=== PATIENT | male | born 1965 | race Caucasian/White ===

== ENCOUNTER 2020-12-26 04:13 | Day surgery (SDC) | payer OTHER ==
[2020-12-26 07:17] VITALS: BMI 34.0
[2020-12-26] MEDS ORDERED: MIDAZOLAM HCL 2 MG/2 ML SINGLE DOSE VIAL ONE (10:10)
[2020-12-26 12:51] VITALS: PULSE 104
[2020-12-26 12:54] VITALS: BP 105/69; TEMP 97.3
== END 2020-12-26 12:52 | disposition home or self-care (01) ==
LOC: JASU-SURG 04:13
PROVIDERS: ATTEND Urology
PROC: 0TF4XZZ Fragmentation in Left Kidney Pelvis, External Approach (ICD-10-PCS; principal; 2020-12-26 09:30)
DX: N20.0 Calculus of kidney (principal)

== ENCOUNTER 2021-08-21 04:54 | Day surgery (SDC) | payer OTHER ==
[2021-08-17 17:36] VITALS: BMI 32.3
[2021-08-21] MEDS ORDERED: PROPOFOL 20 ML ONE (14:42)
[2021-08-21] MEDS ORDERED: MIDAZOLAM HCL 2 MG/2 ML SINGLE DOSE VIAL ONE (14:43)
[2021-08-21] MEDS ORDERED: LIDOCAINE HCL/PF 2% SDV 5ML VIAL ONE (14:44)
[2021-08-21] MEDS ORDERED: GLYCOPYRROLATE 0.2 MG/1 ML VIAL ONE (14:44)
[2021-08-21] MEDS ORDERED: DEXAMETHASONE SOD PHOSPHATE 4 MG/1 ML VIAL ONE (15:05)
[2021-08-21] MEDS ORDERED: ONDANSETRON 4 MG/2 ML VIAL IVPUSH PRN (15:29)
[2021-08-21] MEDS ORDERED: PROMETHAZINE HCL 25 MG/1 ML VIAL IVPUSH PRN (15:29)
[2021-08-21] MEDS ORDERED: oxyCODONE HCL 5 MG TABLET PO PRN (15:29)
[2021-08-21] MEDS ORDERED: LACTATED RINGERS SOLUTION 1,000 ML IV SCH (15:30)
[2021-08-21 17:14] VITALS: TEMP 98.2
[2021-08-21 18:51] VITALS: BP 150/80; PULSE 60
== END 2021-08-21 17:35 | disposition home or self-care (01) ==
LOC: JASU-SURG 04:54
PROVIDERS: ATTEND Urology
PROC: 0T7D8ZZ Dilation of Urethra, Via Natural or Artificial Opening Endoscopic (ICD-10-PCS; principal; 2021-08-21 12:30)
DX: N35.919 Unspecified urethral stricture, male, unspecified site (principal)
CPT/HCPCS: 94760

== ENCOUNTER 2023-05-27 05:23 | Day surgery (SDC) | payer OTHER ==
[2023-05-22 10:20] VITALS: BMI 28.4
[2023-05-27 15:16] VITALS: TEMP 98.3
[2023-05-27 16:11] VITALS: BP 130/70; PULSE 70; RESP 18
== END 2023-05-27 16:10 | disposition home or self-care (01) ==
LOC: JASU-SURG 05:23
PROVIDERS: ATTEND Urology
PROC: 0TF4XZZ Fragmentation in Left Kidney Pelvis, External Approach (ICD-10-PCS; principal; 2023-05-27 13:00)
DX: N20.0 Calculus of kidney (principal)

== ENCOUNTER 2023-07-22 04:27 | Day surgery (SDC) | payer OTHER ==
[2023-07-17 13:26] VITALS: BMI 30.2
[2023-07-22 10:17] VITALS: RESP 18
[2023-07-22] MEDS ORDERED: MIDAZOLAM HCL 2 MG/2 ML SINGLE DOSE VIAL ONE (12:42)
[2023-07-22] MEDS ORDERED: ONDANSETRON 4 MG/2 ML VIAL ONE (12:58)
[2023-07-22 14:03] VITALS: BP 112/72; PULSE 69; TEMP 97.5
== END 2023-07-22 14:10 | disposition home or self-care (01) ==
LOC: JASU-SURG 04:27
PROVIDERS: ATTEND Urology
PROC: 0TF3XZZ Fragmentation in Right Kidney Pelvis, External Approach (ICD-10-PCS; principal; 2023-07-22 12:00)
DX: N20.0 Calculus of kidney (principal)